=== PATIENT | female | born 2000 | race Caucasian/White ===

== ENCOUNTER 2022-09-03 17:29 | Emergency (ER) | payer OTHER, MEDICAID, SELFPAY ==
[2022-09-03 17:38] VITALS: BP 137/65; PULSE 79; RESP 16; TEMP 36.8; O2SAT 100; BMI 22.3
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
[2022-09-03 19:45] VITALS: BP 125/56; PULSE 86; RESP 17; O2SAT 99
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
== END 2022-09-03 19:46 | disposition home or self-care (01) ==
PROVIDERS: Emergency Provider Student in an Organized Health Care Education/Training Program
DX: S69.92XA Unspecified injury of left wrist, hand and finger(s), initial encounter (principal); V89.2XXA Person injured in unspecified motor-vehicle accident, traffic, initial encounter
CPT/HCPCS: 73110; 99281; 99283